=== PATIENT | male | born 1990 | race Caucasian/White ===

== ENCOUNTER 2018-04-12 08:10 | Emergency (ER) | payer SELFPAY ==
[~2018-04-12] VITALS: Ht 187.9 cm; Wt 79.4 kg
[~2018-04-12 08:10] MED LIST: MEDROL DOSEPAK4 MG PO; NORCO 325 MG-51 TAB PO
== END 2018-04-12 10:43 | disposition home or self-care (01) ==
LOC: ED 08:10
DX: S90.32XA Contusion of left foot, initial encounter (principal); R03.0 Elevated blood-pressure reading, without diagnosis of hypertension; F17.200 Nicotine dependence, unspecified, uncomplicated; Z88.0 Allergy status to penicillin; Z88.6 Allergy status to analgesic agent; Z88.1 Allergy status to other antibiotic agents; Z98.890 Other specified postprocedural states; W20.8XXA Other cause of strike by thrown, projected or falling object, initial encounter; Y93.89 Activity, other specified; Y92.89 Other specified places as the place of occurrence of the external cause; Y99.9 Unspecified external cause status